=== PATIENT | female | born 1975 | race Caucasian/White ===

== ENCOUNTER 2018-09-27 15:54 | Outpatient (CLI) | payer OTHER ==
--- NOTE | 2018-09-27 16:26 | RAD ---
THREE VIEWS RIGHT FOOT: COMPARISON: None. HISTORY: Bunion deformity of the right foot. FINDINGS: Three views of the right foot show mild 1st metatarsal head hyperplasia with an overlying bunion. No significant joint space narrowing is seen in the great toe metatarsophalangeal joint. IMPRESSION: Hallux valgus deformity of the great toe with overlying bunion. POS: ASHLEY
== END 2018-09-27 15:55 | disposition home or self-care (01) ==
LOC: BICRAD 15:54
PROVIDERS: ATTEND Podiatrist
DX: M21.611 Bunion of right foot (principal); M20.5X1 Other deformities of toe(s) (acquired), right foot

== ENCOUNTER 2018-10-05 14:42 | Outpatient (CLI) | payer OTHER | END 2018-10-05 14:43 | disposition home or self-care (01) | LOC: BICMAMMO 14:42 | PROVIDERS: ATTEND Obstetrics & Gynecology | DX: Z12.31 Encounter for screening mammogram for malignant neoplasm of breast (principal); N63.12 Unspecified lump in the right breast, upper inner quadrant; N63.23 Unspecified lump in the left breast, lower outer quadrant; Z80.3 Family history of malignant neoplasm of breast | CPT/HCPCS: 77063; 77067 ==

== ENCOUNTER 2018-11-02 14:47 | Outpatient (CLI) | payer OTHER ==
--- NOTE | 2018-11-02 16:37 | ULT ---
BILATERAL BREAST ULTRASOUND: 11/02/18 HISTORY: Abnormal mammogram. FINDINGS/IMPRESSION: Correlation is made with mammograms of same date and 10/05/18. Sonographic evaluation of the upper inner right breast demonstrates a cluster of cysts measuring abou t 8 mm adjacent to a 4 mm cyst at the 1 o'clock position likely corresponding to the mammographic fin ding. At the 8 o'clock position of the left breast, there is a 7 x 3 x 6 mm cyst with internal echoes likel y complicated cyst. This likely corresponds to the finding on the mammogram and should be followed up with ultrasound and left diagnostic mammogram in six months. POS: OFF
--- NOTE | 2018-11-18 14:27 | MMO ---
Bilateral MAMMO Bilat Diag [facility]. CLINICAL HISTORY: Patient is 42 years old and is seen for additional evaluation requested from prior study. The patient has no family history of breast cancer. The patient has no personal history of cancer. VIEWS: The views performed were: bilateral craniocaudal spot compression with tomosynthesis; bilateral mediolateral oblique spot compression with tomosynthesis; and bilateral mediolateral with tomosynthesis. FILMS COMPARED: The present examination has been compared to prior imaging studies performed at [facility] on 10/05/2018 and 11/02/2018. MAMMOGRAM FINDINGS: The breasts are heterogeneously dense, which could obscure a lesion on mammography. Finding 1: The mass in the right upper inner breast corresponds to a cluster of cysts. Finding 2: Mass in the left lower posterior breast likely corresponds to a complicated cyst on US. IMPRESSION: FINDING 1: FINDING IN THE RIGHT BREAST IS BENIGN. FINDING 2: FINDING IN THE LEFT BREAST IS PROBABLY BENIGN. FOLLOW-UP IN 6 MONTHS IS RECOMMENDED. THE RESULTS OF THIS EXAM WERE SENT TO THE PATIENT. ACR BI-RADS Category 3 - Probably benign finding - short interval follow-up suggested. [facility] will notify the patient of the need for additional imaging services. MAMMOGRAPHY NOTE: 1. A negative mammogram report should not delay a biopsy if a dominant of clinically suspicious mass is present. 2. Approximately 10% to 15% of breast cancers are not detected by mammography. 3. Adenosis and dense breasts may obscure an underlying neoplasm.
== END 2018-11-02 14:48 | disposition home or self-care (01) ==
LOC: BICMAMMO 14:47
PROVIDERS: ATTEND Obstetrics & Gynecology
DX: N63.20 Unspecified lump in the left breast, unspecified quadrant (principal); N63.10 Unspecified lump in the right breast, unspecified quadrant
CPT/HCPCS: 77066; G0279

== ENCOUNTER 2018-11-23 10:46 | Day surgery (SDC) | payer OTHER ==
[2018-11-22 17:37] VITALS: BMI 26.6
[2018-11-23] MEDS ORDERED: Bupivacaine PF 0.5% 30 ML VIAL ONE (12:32)
[2018-11-23] MEDS ORDERED: Neomycin-Polymyxin 1 ML AMP ONE (12:32)
[2018-11-23] MEDS ORDERED: Fentanyl 100 MCG/2 ML VIAL ONE (12:36)
[2018-11-23] MEDS ORDERED: Midazolam HCl 2 mg/2 ml Vial ONE ×2 (12:36→13:01)
[2018-11-23] MEDS ORDERED: Ondansetron PF 4 MG/2 ML Vial ONE (13:32)
[2018-11-23] MEDS ORDERED: Ketorolac Tromethamine 30 MG/ML VIAL ONE (13:32)
[2018-11-23] MEDS ORDERED: ePHEDrine 50 MG/ML VIAL ONE (13:32)
[2018-11-23] MEDS ORDERED: Dexamethasone 20 MG/5 ML VIAL ONE (13:32)
[2018-11-23] MEDS ORDERED: Lidocaine 1% PF 5 ML VIAL ONE (13:32)
[2018-11-23] MEDS ORDERED: PROPOFOL 200 MG/20 ML VIAL ONE (13:32)
[2018-11-23] MEDS ORDERED: PHENYLEPHRINE-NS 100 MCG/ML 10 ML SYRINGE ONE (13:32)
--- NOTE | 2018-11-23 16:20 | RAD ---
THREE VIEWS OF THE RIGHT FOOT 11/23/18 COMPARISON: 09/27/18. HISTORY: Status post bunionectomy. FINDINGS: Three views of the right foot shows postsurgical changes of the great toe. An osteotomy has been perf ormed of the proximal phalanx of the great toe with a screw placed through the proximal phalanx. Ther e is a plate and screws fusion the tarsometatarsal joint of the great toe. Surrounding soft tissue sw elling is seen from recent surgery. No perihardware lucency is present. IMPRESSION: Postsurgical changes of the great toe without evidence of complication. POS: MARIELA
[2018-11-23] MEDS ORDERED: Acetaminophen/Codeine 30-300mg Tablet ONE (16:50)
--- NOTE | 2018-11-23 22:01 | OP ---
DATE OF PROCEDURE: 11/23/2018 PREOPERATIVE DIAGNOSES: 1. Bunion with instability at the tarsometatarsal joint, right foot. 2. Pain, right foot. POSTOPERATIVE DIAGNOSES: 1. Bunion with instability at the tarsometatarsal joint, right foot. 2. Pain, right foot. PROCEDURES PERFORMED: 1. Tarsometatarsal joint fusion, right foot. 2. Mikey bunionectomy, right foot. 3. Fluoroscopy, right foot. ANESTHESIA: General with local foot block. HEMOSTASIS: Pneumatic ankle tourniquet at 250 mmHg. ESTIMATED BLOOD LOSS: Less than 5 mL. MATERIALS: 2-0 Vicryl, 4-0 Vicryl, and 4-0 Prolene. IMPLANTS: Two Synthes straight plates, one is the 5-hole and one is the 4-hole with locking and cortical screws. One headless compression screw, 3.0. DESCRIPTION OF PROCEDURE: The patient was brought into the operating room and placed on the operating table in supine position. A well-padded pneumatic ankle tourniquet was placed about the patient's right ankle. Following administration of IV anesthesia, local foot block was given utilizing 20 mL of 0.5% Marcaine plain. The foot was then scrubbed, prepped, and draped in the usual aseptic manner. Esmarch bandage was used to exsanguinate the patient's right foot, and the pneumatic ankle tourniquet was then inflated to 250 mmHg, which provided adequate hemostasis throughout the entire procedure. Next, attention was then directed to the dorsal aspect of the patient's right foot, where a 10 cm linear longitudinal incision was made over the dorsal aspect of the patient's first metatarsal. The incision was deepened to level of the bone with care being taken to retract all vital neurovascular structures. All bleeders were cauterized as necessary. Next, upon adequate closure of the tarsometatarsal joint, all soft tissue attachments were then carefully freed and a wedge of bone was then resected, resecting the tarsometatarsal joint. Both sides were then fenestrated utilizing a 2-mm drill. The bone was then held into a more corrected position and held in place utilizing a compression . A dorsal 5-hole Synthes plate was then placed across the dorsal aspect of the fusion site, and corresponding locking and cortical screws were then placed with fluoroscopy use to assure placement and length of screws. All were noted to be correct at this time. Next, medially, a 4-hole plate was then placed across the osteotomy site with locking and cortical screws in place. Fluoroscopy was used to assure proper alignment and correction, and all were noted to be correct at this time. Next, attention was then directed to the distal aspect of the patient's first metatarsal, where the remaining medial bony prominence was then carefully resected and passed from the operative field. At this time, it was decided that an Mikey bunionectomy was needed to straighten the toe. So, a 3-mm wedge of bone was then resected from the proximal aspect of the proximal phalanx, leaving a lateral bone hinge. A headless compression screw was placed across the osteotomy site, and fluoroscopy was used to assure proper alignment and correction, all were noted to be correct at this time. The wound was irrigated with copious amounts of sterile normal saline and mixture. The subcuticular and capsular structures were then reapproximated and coapted utilizing 2-0 Vicryl for deep closure and 4-0 Vicryl for superficial closure. The skin was then closed utilizing 4-0 Prolene in a running interlocking suture pattern. DISCHARGE SUMMARY: The patient tolerated the procedure and anesthesia and was transferred to the recovery room with vital signs stable and vascular status intact to all digits of the right foot. Following a period of postoperative monitoring, the patient is to be discharged home. Should she have any problems prior to her first postoperative appointment, she is advised to call and will be seen within 1 week of the procedure. Job ID: [id number]
== END 2018-11-23 17:50 | disposition home or self-care (01) ==
LOC: SDC 10:46
PROVIDERS: ATTEND Podiatrist Foot & Ankle Surgery
PROC: 0QSQ04Z Reposition Right Toe Phalanx with Internal Fixation Device, Open Approach (ICD-10-PCS; principal; 2018-11-23)
PROC: 0QBQ0ZZ Excision of Right Toe Phalanx, Open Approach (ICD-10-PCS; principal; 2018-11-23)
DX: M21.611 Bunion of right foot (principal); M25.374 Other instability, right foot; F17.210 Nicotine dependence, cigarettes, uncomplicated; E55.9 Vitamin D deficiency, unspecified; Z79.899 Other long term (current) drug therapy; Z98.1 Arthrodesis status
CPT/HCPCS: 76000; C1713; J0690; J1100; J1885; J2001; J2250; J2405; J2704; J3010; J3490; S0020

== ENCOUNTER 2023-12-21 17:58 | Emergency (ER) | payer OTHER, SELFPAY ==
[2023-12-21] MEDS ORDERED: Ondansetron ODT 4 MG TAB ONE (19:07)
[2023-12-21 19:12] LABS: #Basophils 0.05 10x3/uL (0.0-0.2); %Basophils 0.6 % (0.0-1.0); %Lymphocytes 20.5 % (21.0-51.0); %Monocytes 8.2 % (0.0-10.0); %Neutrophils 67.4 % (42.0-75.0); Hemoglobin 14.5 g/dL (12.0-16.0); Mean Corpuscular Hemoglobin 31.3 pg (27.0-31.0); Mean Platelet Volume 10.7 fL (7.4-10.4); Platelet Count 289 10x3/uL (130-400); RBC Distribution Width 13.2 % (11.5-14.5); Red Blood Cell (RBC) Count 4.63 mill/uL (4.20-5.40)
[2023-12-21 19:25] LABS: ALT (SGPT) 12 U/L (8-55); AST (SGOT) 11 U/L (5-34); Albumin 3.9 g/dL (3.5-5.0); Alkaline Phosphatase 53 U/L (40-110); Anion Gap 12 mmol/L (10-20); BUN (Urea Nitrogen) 10 mg/dL (7.0-18.7); Bilirubin, Total 0.3 mg/dL (0.2-1.2); Calc. Creatinine Clearance 0 mL/min (70-130); Calcium 9.7 mg/dL (7.8-10.44); Carbon Dioxide 24 mmol/L (22-29); Chloride 107 mmol/L (98-107); Estimated GFR 104; Globulin 3.3 g/dL (2.4-3.5); Glucose 99 mg/dL (70-105); Lipase 26 U/L (8-78); Potassium 4.2 mmol/L (3.5-5.1); Protein, Total 7.2 g/dL (6.0-8.3); Sodium 139 mmol/L (136-145)
[2023-12-21 19:41] LABS: Bilirubin Negative (Negative); Blood, Urine Negative (Negative); Glucose, Urine (Dipstick) Negative (Negative); Ketone, Urine Negative (Negative); Leukocyte Negative (Negative); Nitrite Negative (Negative); Protein, Urine (Dipstick) Negative (Neg-Trace); Urobilinogen 0.2 mg/dL (Less than 2)
[2023-12-21 19:45] LABS: Clarity Clear (Clear)
[2023-12-21 19:46] LABS: Bacteria/HPF None Seen HPF (None Seen); CAUTI Indications for Culture Acute Hematuria; RBC/HPF 0-3 HPF (0-3); Squamous Epithelial None Seen HPF (0-3); WBC/HPF 0-3 HPF (0-3)
[2023-12-21 19:49] LABS: Urine Culture Reflex No No
[2023-12-21] MEDS ORDERED: Ketorolac Tromethamine 30 MG (1 mL) VIAL ONE (21:23)
== END 2023-12-21 22:24 | disposition home or self-care (01) ==
LOC: ERS 17:58
DX: R10.11 Right upper quadrant pain (principal); R11.10 Vomiting, unspecified; F17.290 Nicotine dependence, other tobacco product, uncomplicated
CPT/HCPCS: 36415; 74176; 76705; 80053; 81001; 83690; 85025; 96372; J1885; Q0162